=== PATIENT | male | born 2000 | race Two or more races ===

== ENCOUNTER 2022-08-25 00:52 | Emergency (ER) | payer BC, MEDICAID ==
[~2022-08-25] VITALS: Ht 188 cm; Wt 81.6 kg
--- NOTE | 2022-08-25 01:39 | NUR ---
DR MARCI MONTE AT PT'S BEDSIDE FOR EVAL
--- NOTE | 2022-08-25 01:53 | NUR ---
CAR HOPPER AT PT'S BEDSIDE
--- NOTE | 2022-08-25 02:18 | NUR ---
EMPLOYEE RELATIONS ADMINISTRATOR AT PT'S BEDSIDE
[2022-08-25 02:40] LABS: WHITE BLOOD COUNT (AUTO) 10.5 K/uL (4.3-11.0)
[2022-08-25 02:41] LABS: BASOPHILS % (AUTO) 0.6 % (0.0-2.0); EOSINOPHILS % (AUTO) 1.7 % (0.0-6.0); HEMATOCRIT 44 % (39-51); HEMOGLOBIN 14.9 g/dL (13.5-17.5); LYMPHOCYTES % (AUTO) 16.2 % (20.0-44.0); MEAN CORPUSCULAR HGB CONC 34 g/dl (31.0-36.0); MEAN CORPUSCULAR VOLUME 87 fL (80-96); MONOCYTES % (AUTO) 7.2 % (2.0-12.0); NEUTROPHILS % (AUTO) 74.3 % (43.0-81.0); PLATELET COUNT (AUTO) 194 K/uL (150-450); RED BLOOD CELL COUNT(AUTO) 5.06 MIL/uL (4.5-6.0)
[2022-08-25 02:42] LABS: LYMPHOCYTES # (AUTO) 1.7 K/uL (0.8-4.8); NEUTROPHILS # (AUTO) 7.8 K/uL (1.8-8.9)
[2022-08-25 02:43] LABS: BASOPHILS # (AUTO) 0.1 K/uL (0.0-0.2); MONOCYTES # (AUTO) 0.8 K/uL (0.1-1.30)
[2022-08-25 04:24] LABS: CALCIUM, SERUM 8.5 mg/dL (8.5-10.1); CARBON DIOXIDE 26 mmol/L (21-32); CHLORIDE 103 mmol/L (98-107); CREATININE 1.1 mg/dL (0.6-1.3); GLUCOSE 109 mg/dL (74-106); POTASSIUM 3.8 mmol/L (3.5-5.1); SODIUM SERUM 139 mmol/L (136-145); UREA NITROGEN, BLOOD 19 mg/dL (7-18)
[2022-08-25 06:05] VITALS: BP 118/74
== END 2022-08-25 06:06 | disposition home or self-care (01) ==
LOC: ER 00:56
DX: R00.2 Palpitations (principal)
CPT/HCPCS: 36415; 71045-TC; 80048-TC; 84484-TC; 85025-TC